=== PATIENT | male | born 1985 | race African-American/Black ===

== ENCOUNTER 2024-03-09 20:51 | Emergency (ER) | payer OTHER ==
[2024-03-09] MEDS: Ibuprofen 600 MG Tab PO ONE (22:47)
== END 2024-03-09 23:38 | disposition home or self-care (01) ==
LOC: MW.ED 20:51
DX: S62.031A Displaced fracture of proximal third of navicular [scaphoid] bone of right wrist, initial encounter for closed fracture (principal); S93.401A Sprain of unspecified ligament of right ankle, initial encounter; S90.511A Abrasion, right ankle, initial encounter; Z88.1 Allergy status to other antibiotic agents; Z75.8 Other problems related to medical facilities and other health care; W23.0XXA Caught, crushed, jammed, or pinched between moving objects, initial encounter
CPT/HCPCS: 29125; 73100; 73600; 73620; 99283; A9270

== ENCOUNTER 2024-05-05 06:08 | Emergency (ER) | payer OTHER ==
[2024-05-05] MEDS: Tetracaine HCl/PF 0.5% 4 ML Bottle EYEBOTH ONE (06:32)
[2024-05-05] MEDS: Fluorescein 1 MG Ophth Strip EYELF ONE (06:32)
== END 2024-05-05 07:02 | disposition home or self-care (01) ==
LOC: MW.ED 06:08
DX: H10.13 Acute atopic conjunctivitis, bilateral (principal); R03.0 Elevated blood-pressure reading, without diagnosis of hypertension; Z88.1 Allergy status to other antibiotic agents; Z79.1 Long term (current) use of non-steroidal anti-inflammatories (NSAID)
CPT/HCPCS: 99283; J3490

== ENCOUNTER 2024-05-21 09:30 | Emergency (ER) | payer OTHER | END 2024-05-21 10:31 | disposition home or self-care (01) | LOC: MW.ED 09:30 | DX: R07.0 Pain in throat (principal); F17.210 Nicotine dependence, cigarettes, uncomplicated; Z88.1 Allergy status to other antibiotic agents; Z75.8 Other problems related to medical facilities and other health care | CPT/HCPCS: 87428-QW; 87651-QW; 99283 ==